=== PATIENT | female | born 1980 | race American Indian/Alaskan Native ===

== ENCOUNTER 2017-06-07 10:45 | Emergency (ER) | payer MEDICAID ==
[2017-06-07 11:37] VITALS: BP 138/83
--- NOTE | 2017-06-07 11:46 | Emergency Department Report ---
Chief Complaint: Dizziness Stated Complaint: NAUSEA/DIZZINESS/SOB Time Seen by Provider: 06/07/17 11:46 - HPI History of Present Illness: This is per 36-year-old female here complaining that she is lightheaded and dizzy with nausea and vomiting since Wednesday. She said she had a syncope episode after delivering 2011. It's recorded that she has asthma and high blood pressure with high cholesterol .patient reports headache to the right frontal that feels throbbing. Pain is 7 out of 10. Denies any fever or chills. Denies any neck pain or stiffness. She said this morning she woke up when she was on the floor and she had black out and her small baby was touching her face when she woke up. Denies any difficulty speaking in or numbness or tingling in extremities. Denies any shortness of breath or chest pain. - ROS Review of Systems: All systems are negative unless stated in HPI above - Exam Vital Signs: Vital Signs 06/07/17 11:34 Temperature 98.3 F Pulse Rate 85 Respiratory 18 Rate Blood Pressure 138/83 O2 Sat by Pulse 99 Oximetry Physical Exam: Gen.: This is a 36-year-old female well-nourished well-developed in no acute distress. Head: Normocephalic atraumatic without any contusion, abrasion or laceration. Eyes: Bilateral pupils equal and reactive to light, no conjunctival injection or sclerae not icterus. Bilateral extraocular movement intact and normal accommodation. Mini neurological exam: No facial drooping, GCS of 15, negative Romberg, normal gait and speech is clear and fluid. MSE screening note: Focused history and physical exam performed. Due to findings the following was ordered: ED Medical Decision Making - Medical Decision Making MDM: Patient screened by provider in triage area. Appropriate protocol initiated and patient to be seen in main ED by ED Disposition for MSE Condition: Stable
[2017-06-07 12:47] LABS: Bilirubin,Urine NEG (Negative); Blood,Urine MOD (Negative); Ketones,Urine NEG (Negative); Leukocyte Esterase,Urine TR (Negative); Mucus,Urine FEW /HPF; Nitrite,Urine NEG (Negative)
[2017-06-07 12:48] LABS: Basophils % (Auto) 0.5 % (0.0-1.8); Eosinophils % (Auto) 0.6 % (0.0-4.3); Hematocrit 37.5 % (30.3-42.9); Hemoglobin 11.9 gm/dl (10.1-14.3); Mean Corpuscular HGB Conc 32 % (30-34); Mean Corpuscular Volume 81 fl (79-97); Red Blood Count 4.62 M/mm3 (3.65-5.03); White Blood Count 13.1 K/mm3 (4.5-11.0)
[2017-06-07 12:52] LABS: INR 1.06 (0.87-1.13); Partial Thromboplastin Time 24.2 Sec. (24.2-36.6)
[2017-06-07 12:53] LABS: Mean Corpuscular Hemoglobin 26 pg (28-32)
[2017-06-07 13:27] LABS: Platelet Count TNR K/mm3 (140-440)
--- NOTE | 2017-06-07 13:37 | Cat Scan Report ---
CT HEAD WITHOUT CONTRAST INDICATION: Syncope. COMPARISON: None similar. FINDINGS: Noncontrast head CT demonstrates normal, symmetric ventricles and sulci without acute or recent infarct, hemorrhage, mass effect or midline shift. No abnormal extra-axial fluid collections. Posterior fossa structures and basilar cisterns appear within normal limits. Symmetric eye globes. Aplastic/hypoplastic frontal sinuses. Clear remainder aerated paranasal sinuses and mastoid air cells. Intact calvarium. Normal overlying scalp soft tissues. Few missing teeth. CONCLUSION: No acute intracranial CT abnormality, as described. Thank you for the opportunity to participate in this patient's care.
[2017-06-07 14:35] LABS: Alanine Aminotransferase 13 units/L (7-56); Albumin 4.1 g/dL (3.9-5); Albumin/Globulin Ratio 1.1 %; Alkaline Phosphatase 63 units/L (35-129); BUN/Creatinine Ratio 16; Blood Urea Nitrogen 13 mg/dL (7-17); Calcium 9.4 mg/dL (8.4-10.2); Carbon Dioxide 25 mmol/L (22-30); Creatine Kinase 28 units/L (30-135); Glucose 93 mg/dL (65-100); Lactate Dehydrogenase 122 units/L (91-180); Total Protein 7.8 g/dL (6.3-8.2)
[2017-06-07 14:36] LABS: Anion Gap 16 mmol/L; Chloride 99.7 mmol/L (98-107); Sodium 137 mmol/L (137-145)
[2017-06-07 14:59] LABS: Creatine Kinase MB < 1.0 ng/mL (0.0-4.0)
== END 2017-06-08 13:00 | disposition left against medical advice (07) ==
LOC: ED 10:45
DX: R11.0 Nausea (principal); R42 Dizziness and giddiness; Z53.21 Procedure and treatment not carried out due to patient leaving prior to being seen by health care provider
CPT/HCPCS: 36415; 70450; 80053; 81001; 81025; 82550; 82553; 83615; 83735; 84484; 85025; 85610; 85730; 86850; 86900; 86901; 93005; 93010

== ENCOUNTER 2017-10-27 07:37 | Day surgery (SDC) | payer MEDICAID ==
--- NOTE | 2017-10-26 17:27 | Short Stay Summary ---
Short Stay Documentation Date of service: 10/27/17 Narrative H&P: 37y/o with undesired fertility. The patient has elected for permanent sterilization. She was offered other contraceptive options Patient has been reassessed/reevaluated/re-examined. H&P has been reviewed. No interval changes. - History Principal diagnosis: Undesired fertility Past Medical History: GERD, hypertension, other (asthma) Past Surgical History: No surgical history Social history: - Allergies and Medications Current Medications: Allergies No Known Allergies Allergy (Verified 10/26/17 11:05) Home Medications Medication Instructions Recorded Confirmed Last Taken Type No Known Home Medications [No 10/26/17 10/26/17 Unknown History Reported Home Medications] - Physical exam General appearance: no acute distress Integumentary: no rash HEENT: Atraumatic Lungs: Clear to auscultation Breasts: deferred Heart: Regular rate Gastrointestinal: normal Female Genitourinary: deferred Rectal Exam: deferred - Brief post op/procedure progress note Date of procedure: 10/27/17 Pre-op diagnosis: Undesired fertility Post-op diagnosis: same Procedure: laparoscopic bilateral tubal ligation Anesthesia: GETA Surgeon: TRISHA CROW Estimated blood loss: minimal Pathology: none Condition: stable - Hospital course Hospital course: Patient admitted via surgery to undergo a bilateral tubal ligation. Please see operative note for details of surgery. Postoperative course was uneventful. - Disposition Condition at discharge: Good Disposition: [id number] TO HOME OR SELFCARE Short Stay Discharge Plan Activity: other (pelvic rest for 1 week) Diet: regular Additional Instructions: Follow-up is not required Follow-up as needed Prescriptions: Ibuprofen [Motrin] 800 mg PO Q8HR PRN #60 tablet PRN Reason: Pain oxyCODONE /ACETAMINOPHEN [Percocet 5/325] 1 tab PO Q6HR PRN #30 tablet PRN Reason: Pain
[2017-10-27] MEDS ORDERED: NACL BACTERIOSTATIC INFILTRATI ONE (09:12)
[2017-10-27] MEDS ORDERED: ZOFRAN IV PRN (09:32)
[2017-10-27] MEDS ORDERED: DILAUDID IV PRN (09:32)
--- NOTE | 2017-10-27 09:38 | Anesthesia Day of Surgery ---
Anesthesia Day of Surgery - Day of Surgery Patient Examined: Yes Patient H&P Reviewed: Yes Patient is NPO: Yes
--- NOTE | 2017-10-27 09:38 | Anesthesia Consultation ---
Anesthesia Consult and Med Hx Date of service: 10/27/17 - Airway Anesthetic Teeth Evaluation: Good ROM Head & Neck: Adequate Mental/Hyoid Distance: Adequate Mallampati Class: Class II Intubation Access Assessment: Probably Good - Pulmonary Exam CTA: Yes - Cardiac Exam Cardiac Exam: RRR - Pre-Operative Health Status ASA Pre-Surgery Classification: ASA2 Proposed Anesthetic Plan: General - Pulmonary Hx Smoking: No Hx Asthma: Yes (as a child) COPD: No Hx Pneumonia: No - Cardiovascular System Hx Hypertension: Yes - Central Nervous System Hx Seizures: No Hx Psychiatric Problems: No - Endocrine Hx Renal Disease: No Hx End Stage Renal Disease: No Hx Hypothyroidism: No Hx Hyperthyroidism: No - Hematic Hx Anemia: Yes Hx Sickle Cell Disease: No - Other Systems Hx Alcohol Use: Yes (occas) Hx Substance Use: No Hx Cancer: No
[2017-10-27] MEDS ORDERED: DIPRIVAN 10 MG/ML IV ONE (09:43)
[2017-10-27] MEDS ORDERED: XYLOCAINE MPF 2% ONE (09:44)
[2017-10-27] MEDS ORDERED: ZEMURON IV ONE (09:44)
[2017-10-27] MEDS ORDERED: DILAUDID ONE (09:45)
[2017-10-27] MEDS ORDERED: MARCAINE 0.5% INFILTRATI ONE (09:47)
[2017-10-27] MEDS ORDERED: NACL 0.9% IR ONE (09:47)
[2017-10-27] MEDS ORDERED: MARCAINE 0.5% 30 ML INFILTRATI ONE ×2 (09:50→13:31)
[2017-10-27] MEDS ORDERED: NACL 0.9% 1000 ML 1,000 ML IV SCH (10:00)
[2017-10-27] MEDS ORDERED: NEOSTIGMINE ONE (10:26)
[2017-10-27] MEDS ORDERED: ROBINUL ONE (10:26)
[2017-10-27] MEDS ORDERED: ZOFRAN ONE (10:26)
--- NOTE | 2017-10-27 10:43 | Operative Report ---
Operative Report Operative Report: Date of surgery: 10/27/2017 Preoperative diagnosis: Unwanted fertility Postoperative diagnosis: Same as above Procedure: Laparoscopic bilateral tubal ligation with Filshie clips Surgeon: Deanna Johnson M.D. Anesthesia: General endotracheal anesthesia Estimated blood loss: Minimal Findings: Normal uterus tubes and ovaries bilaterally Indication: 37-year-old 003 with undesired fertility. The patient has elected for permanent sterilization. Procedure: The patient was taken to the operating room and given general endotracheal anesthesia without complication. The patient is prepped and draped in a normal sterile fashion. A bivalve speculum was placed in the patient's vagina and a single-tooth tenaculum was placed on the anterior lip of the cervix .A uterine acorn manipulato rwas placed, and the bivalve speculum was then removed. Attention was then turned to the patient's abdomen where a 5 mm infraumbilical skin incision was then made. A Veress needle was placed and peritoneal entry was verified water-filled syringe. Insufflation of the peritoneal cavity was performed with CO2 gas. A 5 mm trocar was placed and the laparoscope was then inserted. The patient was then placed in Trendelenburg. A 7 mm suprapubic skin incision was then made. Under direct visualization a 7 mm trocar was then placed. General survey of the patient's abdomen revealed normal uterus tubes and ovaries bilaterally. The fallopian tube was then followed out to the fimbriated end. A Filshie clip was placed, on the ampullary portion of the tube. This was performed on the contralateral side as well. The 7 mm trocar was then removed. The pneumoperitoneum was then released. The 5 mm trocar laparoscope was then removed. The skin incisions were then closed with 4-0 Monocryl. The incisions were injected with quarter percent Marcaine. Dressings were applied to the incision. The vaginal instruments were then removed atraumatically. Then successfully extubated and taken to the recovery room. All sponge laps and needle counts were correct 2.
[2017-10-27 11:53] VITALS: BP 140/68
== END 2017-10-27 07:38 | disposition home or self-care (01) ==
LOC: OR 07:37
PROVIDERS: ATTEND Obstetrics & Gynecology
DX: Z30.2 Encounter for sterilization (principal); K21.9 Gastro-esophageal reflux disease without esophagitis; I10 Essential (primary) hypertension; J45.909 Unspecified asthma, uncomplicated
CPT/HCPCS: 58671; 81025; J1170; J2405; J2704; J2710; J7030